=== PATIENT | male | born 1985 | race Caucasian/White ===

== ENCOUNTER 2018-04-12 19:23 | Emergency (ER) | payer OTHER ==
[2018-04-12 19:32] VITALS: BP 163/83; PULSE 100; TEMP 98; BMI 28.5
[2018-04-12] MEDS ORDERED: IBUPROFEN 600 MG TABLET (FP) PO ONE ×2 (20:37→20:39)
[2018-04-12] MEDS ORDERED: CYCLOBENZAPRINE HCL 10 MG TABLET (FP) PO ONE (20:37)
[2018-04-12] MEDS ORDERED: CYCLOBENZAPRINE HCL 10 MG TABLET (FP) ONE (20:39)
--- NOTE | 2018-04-12 20:44 | PDOC ---
History of Present Illness - General Chief Complaint: Back Pain Stated Complaint: BACK PAIN, FALL Time Seen by Provider: 04/12/18 20:17 History Source: Patient Exam Limitations: No Limitations - History of Present Illness Initial Comments: 04/12/18 20:38 [place] [employer], while on duty slipped from stair falling backwards and striking upper left back on retaining wall and twisting back both upper and lower. No head or extremity injury. Patient complaints of spasm that radiates down his left shoulder and down primarily left side of his back. 04/12/18 20:52 Occurred: reports: just prior to arrival Severity: reports: mild, moderate Pain Location: reports: back Method of Injury: Yes: direct blow, fall Associated Symptoms (Fall): denies symptoms Past History - Travel Traveled outside of the country in the last 30 days: No Close contact w/someone who was outside of country & ill: No - Past Medical History Allergies/Adverse Reactions: Allergies Allergy/AdvReac Type Severity Reaction Status Date / Time No Known Allergies Allergy Verified 04/12/18 19:32 Home Medications: Ambulatory Orders No Home Medications 0 dose .ROUTE UTDICT 03/03/13 Cyclobenzaprine HCl 10 mg PO Q8H PRN #14 tablet 04/12/18 Naproxen [Naprosyn -] 500 mg PO BID #30 tablet 04/12/18 COPD: No - Suicide/Smoking/Psychosocial Hx Smoking Status: No Smoking History: Never smoked Number of Cigarettes Smoked Daily: 0 Review of Systems - Review of Systems Able to Perform ROS?: Yes Is the patient limited [place] proficient: Yes Constitutional: Yes: Symptoms Reported, See HPI, Malaise HEENTM: Yes: See HPI. No: Symptoms Reported Respiratory: Yes: See HPI. No: Symptoms reported, Wheezing Musculoskeletal: Yes: Symptoms Reported, See HPI, Back Pain, Muscle Pain Integumentary: No: Symptoms Reported Neurological: Yes: Symptoms reported All Other Systems: Reviewed and Negative *Physical Exam - Vital Signs Last Vital Signs Temp Pulse Resp BP Pulse Ox 98.0 F 100 H 18 163/83 100 04/12/18 19:31 04/12/18 19:31 04/12/18 19:31 04/12/18 19:31 04/12/18 19:31 - Physical Exam General Appearance: Yes: Nourished, Appropriately Dressed, Apparent Distress, Mild Distress, Moderate Distress HEENT: positive: EMELI, TMs Normal Neck: positive: Supple. negative: Tender Respiratory/Chest: positive: Lungs Clear, Normal Breath Sounds Gastrointestinal/Abdominal: positive: Normal Bowel Sounds, Soft. negative: Tender, Distended, Guarding, Rebound Musculoskeletal: positive: Normal Inspection, Decreased Range of Motion (due to ), Muscle Spasm. negative: CVA Tenderness (L), Vertebral Tenderness (no spine tenderness ) Extremity: positive: Normal Capillary Refill, Normal Inspection, Normal Range of Motion. negative: Tender Integumentary: positive: Normal Color, Dry, Warm. 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, Fully Oriented, Alert, Normal Mood/ Affect, Normal Response Progress Note - Progress Note Progress Note: Back spasm, we'll treat with NSAIDs and cyclobenzaprine *DC/Admit/Observation/Transfer Diagnosis at time of Disposition: Spasm of back muscles Fall Qualifiers: Encounter type: initial encounter Qualified Code(s): W19.XXXA - Unspecified fall, initial encounter - Discharge Dispostion Disposition: HOME Condition at time of disposition: Stable Decision to Admit order: No - Prescriptions Prescriptions: Cyclobenzaprine HCl 10 mg PO Q8H PRN #14 tablet PRN Reason: spasm Naproxen [Naprosyn -] 500 mg PO BID #30 tablet - Referrals - Patient Instructions Printed Discharge Instructions: DI for Back Spasm Additional Instructions: Rest, no heavy lifting or exercise until pain is resolved Hot soaks to neck and low back as often as possible/hot showers or Jacuzzis No massage or therapy until spasm is gone Continue Naprosyn 500 mg tablet, 1 tablet every 12 hours for the next 3 days then as needed for pain and swelling Cyclobenzaprine 1-10mg every 8 hours as needed for spasm If not significant improvement within 24 hours with medication and rest regime, followup with private physician for change in medications and /or therapy. - Post Discharge Activity Forms/Work/School Notes: Back to Work
== END 2018-04-12 20:44 | disposition home or self-care (01) ==
LOC: JERFT 19:23
DX: S39.82XA Other specified injuries of lower back, initial encounter (principal); M62.830 Muscle spasm of back; W10.8XXA Fall (on) (from) other stairs and steps, initial encounter; Y93.89 Activity, other specified; Y92.89 Other specified places as the place of occurrence of the external cause; Y99.0 Civilian activity done for income or pay
CPT/HCPCS: 99281-25

== ENCOUNTER 2020-07-19 11:21 | Emergency (ER) | payer OTHER ==
[2020-07-19 11:31] VITALS: BP 151/96; PULSE 92; TEMP 99.5; BMI 28.5
[2020-07-19] MEDS ORDERED: NAPROXEN 500 MG TABLET PO ONE (12:28)
== END 2020-07-19 13:03 | disposition home or self-care (01) ==
LOC: FER 11:21
DX: M54.6 Pain in thoracic spine (principal)
CPT/HCPCS: 72070-TC-FY; 72100-TC-FY; 99284-25

== ENCOUNTER 2020-10-16 22:06 | Emergency (ER) | payer OTHER ==
[2020-10-16 22:30] VITALS: BP 102/73; PULSE 80; TEMP 98.9; BMI 27.1
[2020-10-16] MEDS ORDERED: DIPHTH,PERTUSS(ACELL),TET VAC 0.5 ML VIAL IM ONE (23:10)
[2020-10-16] MEDS ORDERED: TETANUS AND DIPHTHERIA TOXOID 0.5 ML DISP.SYRIN IM ONE (23:11)
== END 2020-10-16 23:52 | disposition home or self-care (01) ==
LOC: FER 22:06
PROC: 3E0234Z Introduction of Serum, Toxoid and Vaccine into Muscle, Percutaneous Approach (ICD-10-PCS; principal; 2020-10-16)
DX: S91.331A Puncture wound without foreign body, right foot, initial encounter (principal)
CPT/HCPCS: 73630-TC-RT-FY; 99284-25